=== PATIENT | female | born 2005 | race Caucasian/White ===

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

== ENCOUNTER 2024-02-11 15:33 | Outpatient (CLI) | payer OTHER, SELFPAY ==
[2024-02-11 20:10] LABS: Basophils % 0.3 % (0.1-2.0); Eosinophils % 0.4 % (0.1-12.0); Hematocrit 41.8 % (37.0-47.0); Hemoglobin 13.2 g/dL (12.2-16.2); Lymphocytes # 1.8 K/mm3 (0.7-4.5); Lymphocytes % 27.4 % (10-50); Mean Corpuscular HGB Conc 31.6 g/dL (31.8-35.4); Mean Corpuscular Hemoglobin 30.5 pg (27.0-31.2); Mean Corpuscular Volume 96.5 fl (81-99); Mean Platelet Volume 8.2 fl (7.4-10.4); Monocytes # 0.7 K/mm3 (0.1-1.0); Monocytes % 10.7 % (1.7-9.3); Neutrophils # 3.9 K/mm3 (1.8-7.8); Neutrophils % 61.1 % (37.0-80.0); Platelet Count 390 K/mm3 (142-424); Red Blood Count 4.33 M/mm3 (4.20-5.40); Red Cell Distribution Width 12.7 % (11.5-17.5); White Blood Count 6.4 K/mm3 (4.5-13.0)
[2024-02-11 20:28] LABS: Alanine Aminotransferase 15 U/L (12-78); Albumin Level 4.2 g/dl (3.5-5.0); Albumin/Globulin Ratio 1.4 (1.1-1.8); Alkaline Phosphatase 52 U/L (38-126); Anion Gap 10.5 mEq/L (5-15); Aspartate Amino Transferase 24 U/L (14-36); Bilirubin,Total 0.8 mg/dl (0.2-1.3); Blood Urea Nitrogen 10 mg/dl (7-17); Calcium 9.7 mg/dl (8.4-10.2); Carbon Dioxide 24 mmol/L (22.0-30.0); Chloride 106 mmol/L (98-107); Chol/HDL Ratio 2.8 (1-3.5); Cholesterol 128 mg/dl (140-200); Estimated Glomerular Filt Rate 157 ml/min (>60); GFR (African American) 190 ML/MIN (>60); Glucose 86 mg/dl (74-100); HDL Cholesterol 46 mg/dl (40-60); Potassium 4.5 mmoL/L (3.5-5.1); Sodium 136 mmol/L (136-145); Total Protein,Serum 7.2 g/dl (6.3-8.2); Triglycerides 64 mg/dl (30-150); VLDL Cholesterol 13 mg/dL (0-40)
[2024-02-11 20:41] LABS: 25-OH Vitamin D, Total 38.7 ng/mL (30-100)
[2024-02-11 20:47] LABS: Direct LDL Cholesterol 63.32 mg/dL (100-129)
[2024-02-11 20:56] LABS: Thyroid Stimulating Hormone 0.59 uIU/mL (0.465-4.68)
== END 2024-02-11 23:59 | disposition home or self-care (01) ==
LOC: LAB.DROPOF 02-12 14:58
PROVIDERS: PCP Family Medicine; Visit Provider Family Medicine
DX: H69.90 Unspecified Eustachian tube disorder, unspecified ear (principal); H93.90 Unspecified disorder of ear, unspecified ear; J30.2 Other seasonal allergic rhinitis; J34.89 Other specified disorders of nose and nasal sinuses
CPT/HCPCS: 80050; 80053; 80061; 82306; 84443; 85025

== ENCOUNTER 2024-04-24 17:24 | Emergency (ER) | payer OTHER, SELFPAY ==
[2024-04-24 17:35] VITALS: BP 98/65; PULSE 76; RESP 20; TEMP 37.1; O2SAT 96; BMI 21.8
--- NOTE | 2024-04-24 17:43 | ED_ITS ---
Discharge Plan Disposition Patient Disposition: Home, Self-Care Condition: Good Prescriptions Prescriptions: New prednisone 10 mg tablet 10 mg PO BID 3 Days Qty: 6 0RF azithromycin [Zithromax] 250 mg tablet 250 mg PO UD DOSE PK Qty: 6 0RF Rx Instructions: Take two (2) tablets today, then one (1) tablet days #2 thru #5 [id number]-[id number] [Bromfed DM] 2-30-10 mg/5 mL Syrup 5 ml PO Q6H PRN (Reason: Cough) Qty: 240 0RF ondansetron 4 mg Tablet,Disintegrating 4 mg PO Q8H PRN (Reason: Nausea) Qty: 12 0RF Referrals Follow up/Referrals: Beatrice Linares APRN [Primary Care Provider] - See instructions Activity Restrictions/Add. Instructions Additional Instructions/Restrictions: Drink plenty of fluids. Take tylenol or ibuprofen for pain or fever. Take the medications as directed. Follow up with your regular doctor. GO TO THE ER FOR ANY WORSENING SYMPTOMS Clinical Impressions Clinical Impression: Pharyngitis Instructions Patient Instructions: Sore Throat, DI for Pharyngitis/Tonsillopharyngitis -- Adult, Ondansetron, Azithromycin Print Language Print Language: Greek Discharge ED Provider: Richi Rubalcava [facility] [place] General Stated complaint: Sore throat,cough,congestion Time Seen by Provider: 04/24/24 17:43 Related Data Previous Rx's ?Medication ?Instructions ?Recorded azithromycin 250 mg tablet 250 mg PO UD DOSE PK #6 tabs 04/24/24 (Zithromax) vohvqtupupffkqo-mijtrsqtmlchkmj-JN 5 ml PO Q6H PRN Cough #240 mL 04/24/24 2 mg-30 mg-10 mg/5 mL oral syrup (Bromfed DM) ondansetron 4 mg disintegrating 4 mg PO Q8H PRN Nausea #12 tabs 04/24/24 tablet prednisone 10 mg tablet 10 mg PO BID 3 days #6 tabs 04/24/24 Allergies Allergy/AdvReac Type Severity Reaction Status Date / Time Penicillins [PENICILLINS] Allergy Unknown Rash Verified 04/24/24 17:45 Sulfa (Sulfonamide Allergy Unknown Rash Verified 04/24/24 17:45 Antibiotics) [SULFA (SULFONAMIDE ANTIBIOTICS)] [facility] Disclaimer: The information contained in this section may have been updated after the patient was seen, as this information can be updated by other users. Medical History (Updated 04/24/24 @ 18:07 by Richi Rubalcava APRN) Abnormal uterine bleeding Surgical History (Updated 02/25/24 @ 14:51 by REILLY Monroy) H/O removal of cyst Family History Other No significant family history Social History (Updated 02/25/24 @ 14:51 by REILLY Monroy) Smoking Status: Current every day smoker alcohol intake: never substance use type: denies use current occupational status: employed Travel in the last 8 weeks: None household members: family housing: house ROS Obtained: Yes All systems reviewed & no additional complaints except as documented Constitutional Constitutional: Reports chills and Reports fever(s) Eyes Eyes: Denies eye discharge ENT Ears, Nose, Mouth, and Throat: Reports as per HPI Cardiovascular Cardiovascular: Denies chest pain Respiratory Respiratory: Denies chest congestion and Reports cough Gastrointestinal Gastrointestingal: Reports nausea; Denies abdominal pain, constipation, cramping, diarrhea or vomiting Musculoskeletal Musculoskeletal: Denies arthralgias Integumentary/Breasts Skin/Breast: Denies rash Neurologic Neurologic: Denies paresthesias Physical Exam General General appearance: alert and in no apparent distress Head Head exam: atraumatic, normocephalic and normal inspection Eye Eye exam: Present normal appearance, PERRL and EOMI ENT ENT exam: Present mucous membranes moist and normal external ear exam Expanded ENT Exam TM/Canal exam: Bilateral TM: erythema and bulging Nose exam: Absent sinus tenderness Mouth exam: Present normal external inspection; Absent drooling Teeth exam: Present normal inspection Throat exam: Present tonsillar erythema, tonsillomegaly and tonsillar exudate Neck Neck exam: Present normal inspection, full ROM and trachea midline; Absent tenderness, meningismus or lymphadenopathy Chest Chest inspection: Present normal inspection and symmetric chest wall rise; Absent tenderness Respiratory Respiratory exam: Present normal lung sounds bilaterally; Absent respiratory distress, wheezes, stridor or accessory muscle use Cardiovascular Cardiovascular exam: Present regular rate and normal rhythm; Absent systolic murmur or diastolic murmur Abdominal Exam Abdominal exam: Present soft and normal bowel sounds; Absent distention, tenderness, guarding, rebound or rigidity Extremities Exam Extremities exam: Present normal inspection and normal capillary refill; Absent calf tenderness Back Exam Back exam: Present normal inspection and full ROM; Absent tenderness, CVA tenderness (R) or CVA tenderness (L) Neurological Exam Neurological exam: Present alert, oriented X3 and CN II-XII intact Psychiatric Psychiatric exam: Present normal affect and normal mood Skin Skin exam: Present warm, dry, intact and normal color Medical Decision Making Medical Records Medical records reviewed: No I reviewed the patient's medical records. Screening: Per USPSTF and CDC recommendations, given the prevalence of disease in our region, it is our hospital?s policy to screen for HIV and viral Hepatitis for all patients aged 18 and over and those with ongoing risk factors. Socrates Inquiry Pt receiving controlled substance: No Lab Data Lab results reviewed: Yes I reviewed the patient's lab results.
[2024-04-24 17:47] LABS: UTC Strep Screen (Rapid) Negative (Negative)
[2024-04-24 18:09] VITALS: BP 98/65; PULSE 76; RESP 20; TEMP 37.1; O2SAT 96
== END 2024-04-24 18:10 | disposition home or self-care (01) ==
PROVIDERS: Emergency Provider Nurse Practitioner Family; PCP Family Medicine
DX: J02.9 Acute pharyngitis, unspecified (principal)
CPT/HCPCS: 87880; 99213; G0381

== ENCOUNTER 2024-12-17 11:48 | Outpatient (CLI) | payer OTHER, SELFPAY ==
[2024-12-17 15:32] LABS: Coronavirus 19, PCR Not Detected (NotDetected); Human Rhinovirus Not Detected (NotDetected); Influenza A, PCR Not Detected (NotDetected); Influenza B, PCR Not Detected (NotDetected); Respiratory Syncytial Virus Not Detected (NotDetected)
--- OUTSIDE RECORDS SUMMARY | 2024-12-18 09:44 | XMS_ITS | Clinical Summary ---
Author Organization Healthcare Address [address] [place] [address] Care Team Providers Care Sales Market Leader Name Role Phone Tanja Hutton APRN Primary Care Provider [phone] Family History Medical History Relation Name Comments Alcohol abuse Father Conversions - Other Paternal Grandmother H. pylori infection Relation Name Status Comments Father Paternal Grandmother Social History Tobacco Use Types Packs/Day Years Used Date Smoking Tobacco: Never Comments Unknown Sex and Gender Information Value Date Recorded Sex Assigned at Not on file Legal Sex Female 6:59 PM EDT Gender Identity Not on file Sexual Orientation Not on file Last Filed Vital Signs Vital Sign Reading Time Taken Comments Blood Pressure 112/68 02/19/2019 12:43 PM EDT Pulse 165 02/19/2019 12:43 PM EDT Temperature 36.6 C (97.9 F) 08/01/2018 9:10 AM EST Respiratory Rate - - Oxygen Saturation - - Inhaled Oxygen Concentration - - Weight 60 kg (132 lb 4.4 oz) 02/19/2019 12:43 PM EDT Height 165 cm (5' 4.96 ) 02/19/2019 12:43 PM EDT Body Mass Index 22.04 02/19/2019 12:43 PM EDT Plan of Treatment Not on file Care Teams Sales Market Leader Relationship Specialty Start Date End Date Tanja Hutton APRN [address] [place] [id number] PCP - General 11/12/20
== END 2024-12-17 23:59 | disposition home or self-care (01) ==
LOC: LAB.DROPOF 12-18 09:43
PROVIDERS: PCP Student in an Organized Health Care Education/Training Program; Visit Provider Student in an Organized Health Care Education/Training Program
DX: J34.89 Other specified disorders of nose and nasal sinuses (principal)
CPT/HCPCS: 87631

== ENCOUNTER 2025-01-20 11:06 | Outpatient (CLI) | payer OTHER, SELFPAY ==
[2025-01-20 09:16] VITALS: BMI 22.4
--- OUTSIDE RECORDS SUMMARY | 2025-01-20 11:09 | XMS_ITS | Clinical Summary ---
Author Organization Healthcare Address [address] [place] [address] Care Team Providers Care Engraver Name Role Phone Tanja Hutton APRN Primary Care Provider [phone] Family History Medical History Relation Name Comments [...] of Treatment Not on file Care Teams Engraver Relationship Specialty Start Date End Date Tanja Hutton APRN [address] [place] [id number] PCP - General 11/12/20
[2025-01-20 12:11] LABS: Hematocrit 37.7 % (37.0-47.0); Hemoglobin 12.5 g/dL (12.2-16.2); Immature Granulocytes % 0.3 %; Mean Corpuscular HGB Conc 33.2 g/dL (31.8-35.4); Mean Corpuscular Hemoglobin 29.4 pg (27.0-31.2); Mean Corpuscular Volume 88.7 fl (81-99); Nucleated Red Blood Cells % 0 %; Platelet Count 361 K/mm3 (142-424); Red Blood Count 4.25 M/mm3 (4.20-5.40); Red Cell Distribution Width-SD 38.4 fL; White Blood Count 7.8 K/mm3 (4.8-10.8)
[2025-01-20 12:24] LABS: Chloride 100 mmol/L (98-107); Sodium 133 mmol/L (136-145)
[2025-01-20 12:25] LABS: Potassium 4.1 mmoL/L (3.5-5.1)
[2025-01-20 12:27] LABS: Anion Gap 11.1 mEq/L (5-15); Blood Urea Nitrogen 13 mg/dl (7-17); Carbon Dioxide 26 mmol/L (22.0-30.0); Creatinine Clearance Estimated 209 mL/min (50-200); Creatinine,Serum 0.40 mg/dl (0.52-1.04); Estimated Glomerular Filt Rate 201 ml/min (>60); GFR (African American) 244 ML/MIN (>60); HCG Qualitative, Serum Negative (Negative)
[2025-01-20 12:28] LABS: Calcium 9.6 mg/dl (8.4-10.2); Glucose 82 mg/dl (74-100)
== END 2025-01-20 23:59 | disposition home or self-care (01) ==
LOC: PREOP 11:07
PROVIDERS: Nurse Practitioner; PCP Family Medicine; Visit Provider Otolaryngology
DX: Z01.812 Encounter for preprocedural laboratory examination (principal)
CPT/HCPCS: 80048; 84703; 85025

== ENCOUNTER 2025-01-26 07:33 | Day surgery (SDC) | payer OTHER, SELFPAY ==
[2025-01-20 13:36] VITALS: BMI 22.4
[2025-01-26] VITALS (9 sets, daily range): BP systolic 90–123; BP diastolic 56–83; PULSE 61–104; RESP 16–18; TEMP 36.3–36.9; O2SAT 98–100
[2025-01-26] MEDS: LACTATED RINGERS 1000ML 1,000 ML 25 ML IV (08:08)
--- NOTE | 2025-01-26 08:27 | EXP.ANES.CKL ---
[facility] Disclaimer: The information contained in this section may have been updated after the patient was seen, as this information can be updated by other users. Medical History Recurrent streptococcal tonsillitis Enlarged tonsils Abnormal uterine bleeding Surgical History H/O removal of cyst Family History Other No significant family history Social History Smoking Status: Current every day smoker alcohol intake: never substance use type: denies use current occupational status: employed Travel in the last 8 weeks?: None household members: family housing: house [facility] Anesthesia Checklist Patient Identification Patient Identification: Verbal (Name & ) Structural Data Admitted From: Home Planned Operative Procedure/s: t/a Consent for Planned Operative Procedure(s) Verified: Yes NPO Status Verified Time NPO: 00:00 Additional verifications Anesthesia Reactions: No Hx Blood Transfusions: No Blood Transfusion Reaction: No Airway Assessment Mallampati Score:: Class II C-Spine Mobility Assessed: Yes TMJ Mobility Assessed: Yes Dentition: Good Dentition Neurological Assessment Level of Consciousness: Awake, Alert and Appropriate Anesthesia Plan Anesthesia Risk discussed: Yes Anesthesia Plan: Verified ASA Class: I Anesthesia Type: General
[2025-01-26] MEDS: BUPIVACAINE 0.5% W/EPI 1:200,000 30ML VIAL 30 ML IJ (09:45)
[2025-01-26] MEDS: WHITE PETROLATUM 5GM UDP 5 GM TP (09:45)
--- NOTE | 2025-01-26 10:08 | EXP.OP.NOTE ---
Date of procedure: 01/26/25 Pre-op Diagnosis:: Chronic tonsillitis Post-op Diagnosis:: Same Procedure performed:: Tonsillectomy Surgeon:: Porfirio Nunn III, MD Prize Fighter(s):: None EXTERMINATION INSPECTOR:: Shae Sylvester Anesthesia: GETA Estimated blood loss (mL): 20 Operative findings:: Chronically inflamed tonsils Operative note:: The patient was brought to the operating room placed under general endotracheal anesthesia with IV sedation. They were then placed in the Afsaneh position and a McIvor mouthgag was used to better expose the oral cavity and oropharynx. The soft palate was palpated and noted to be intact through all planes. The adenoid pad was inspected and noted to be nonobstructing. The right tonsil was then dissected from its underlying fascial and muscular attachments using electrocautery dissection. Any bleeding spots were spot coagulated. A similar procedure was performed on the left side with similar results. The wound was then irrigated with sterile water solution. After observation and no evidence any further bleeding, I injected half percent Marcaine with epinephrine into the tonsillar fossae approximately 3 ccs were used. The patient stomach contents were aspirated clear. She was awakened in the operating room taken recovery room in good condition. Condition: stable Disposition: PACU Complications:: None
--- NOTE | 2025-01-26 10:14 | EXP.ANES.I ---
[facility] Anesthesia Record Part I Anesthesia Record I Intake, IV Amount: 600 Hydration: Adequate Estimated blood loss (mL): 0 Urine output (mL): 0 Blood Products used (#): none Blood Pressure: 123/83 SaO2: 98 Pulse Rate: 66 Airway Patency: Patent Respiratory Rate: 18 Temperature: 98 F Patient is:: Awake, Nasal O2 and Stable Stable to PACU at:: 10:18
== END 2025-01-26 11:09 | disposition home or self-care (01) ==
PROVIDERS: PCP Family Medicine; Visit Provider Otolaryngology
PROC: (CPT 42826; principal; 2025-01-26 08:30)
DX: J35.01 Chronic tonsillitis (principal); J30.2 Other seasonal allergic rhinitis; Z88.0 Allergy status to penicillin; Z88.2 Allergy status to sulfonamides; Z86.19 Personal history of other infectious and parasitic diseases; Z97.5 Presence of (intrauterine) contraceptive device
CPT/HCPCS: 42826; J1100; J1200; J2003; J2250; J2405; J2704; J3010; J7120

== ENCOUNTER 2025-02-06 16:50 | Emergency (ER) | payer OTHER, SELFPAY ==
[2025-02-06 17:12] VITALS: BP 110/79; PULSE 90; RESP 16; TEMP 37; O2SAT 99; BMI 21.6
--- OUTSIDE RECORDS SUMMARY | 2025-02-06 17:27 | XMS_ITS | Clinical Summary ---
Author Organization Healthcare Address [address] [place] [address] Care Team Providers Care Outcomes Analyst Name Role Phone Tanja Hutton APRN Primary Care Provider [phone] Family History Medical History Relation Name Comments [...] of Treatment Not on file Care Teams Outcomes Analyst Relationship Specialty Start Date End Date Tanja Hutton APRN [address] [place] [id number] PCP - General 11/12/20
[2025-02-06 18:20] VITALS: BP 129/77; PULSE 84; RESP 18; TEMP 36.9; O2SAT 98
[2025-02-06 19:00] VITALS: BP 124/71; PULSE 90; O2SAT 99
--- NOTE | 2025-02-06 19:02 | ED_ITS ---
<Statement entered by Chani Guerrero DO - 02/07/25 01:57> I was consulted by the MARIAELENA, and we discussed the complexity of problems being addressed. I approve the treatment and management plan for this patient's care in the emergency department, thus performing a substantial portion of the medical decision making. Chani Guerrero DO Discharge Plan Disposition Patient Disposition: Xfer Short-Term Hosp Prescriptions Prescriptions: No Action Renate 14 mcg/24 hr (3 yrs) 13.5 mg intrauterine device 14 mcg intrauterine DIRECTED Referrals Follow up/Referrals: Beatrice Linares APRN [Primary Care Provider, Family Practice] - See instructions Activity Restrictions/Add. Instructions Additional Instructions/Restrictions: Patient accepted by Dr. Dunn to the [facility] ED. Clinical Impressions Clinical Impression: Post-tonsillectomy hemorrhage Print Language Print Language: Malawian Discharge ED Provider: Chani Guerrero General Adult HPI <TESS Carrion - Last Filed: 02/06/25 20:35> General Chief complaint: Sore Throat Stated complaint: bleeding at tonsillectomy 01/26/25 Time Seen by Provider: 02/06/25 17:31 Mode of Arrival: Ambulatory Source of Information: Patient Description of Symptoms (Recalled from ER Triage Doc. by RN): pt to the ED with bleeding from her throat post tonsilectomy on 01/26. pt saw the ENT yesterday who stated she was healing well but the pt is concerned about the bleeding. pt stated her pain has been well controlled and rates her pain a 2 at this time History of Present Illness HPI narrative: Patient presents with 5 days of post tonsillectomy bleeding. Surgery date was 01/26/25. She reports that she has had a fever, Tmax of 101 as well. She had follow-up in the office yesterday with the nurse practitioner. She reports that last night she started to develop some quarter size clots and felt she was choking at times. MD complaint: post tonsillectomy bleed Onset (ago): day(s) (5) Location: mouth Severity: moderate Consistency: intermittent Relieving factors: none Exacerbating factors: none Associated symptoms: negative nausea/vomiting Related Data Home Medications ?Medication ?Instructions ?Recorded ?Confirmed levonorgestrel 14 mcg/24 hr (up to 14 mcg intrauterine DIRECTED 01/08/25 02/05/25 3 yrs) 13.5 mg intrauterine device (Renate) Allergies Allergy/AdvReac Type Severity Reaction Status Date / Time Penicillins (PENICILLINS) Allergy Unknown Rash Verified 02/05/25 09:44 Sulfa (Sulfonamide Allergy Unknown Rash Verified 02/05/25 09:44 Antibiotics) (SULFA (SULFONAMIDE ANTIBIOTICS)) PFSH <TESS Carrion - Last Filed: 02/06/25 20:35> [facility] Disclaimer: The information contained in this section may have been updated after the patient was seen, as this information can be updated by other users. Medical History (Updated 02/06/25 @ 20:30 by TESS Carrion) Recurrent streptococcal tonsillitis Enlarged tonsils Abnormal uterine bleeding Surgical History (Updated 02/05/25 @ 10:02 by aJyla Ramos APRN) Status post tonsillectomy History of tonsillectomy H/O removal of cyst Family History Other No significant family history Social History Smoking Status: Never smoker alcohol intake: never substance use type: denies use current occupational status: employed Travel in the last 8 weeks?: None household members: family housing: house Have you lived/traveled outside [place] in past 30 days?: No Contact w/someone who lives/traveled outside US past 30 days?: No Exposure to someone with infectious disease in past 14 days?: No Do you have a fever (greater than 100.4 F or 38 C)?: No Have you tested positive for COVID-19?: No Exposed to someone with COVID-19 in past 14 days?: No Do you have a sore throat?: No Do you have a cough?: No Do you have any weakness?: No Do you have any diarrhea?: No Are you experiencing any unusual bleeding?: No Do you have any muscle aches/pain?: No Do you have any abdominal pain?: No Are you experiencing loss of taste or smell?: No Other Medical History Have you received the Flu Vaccine for this season: Yes Have you received the Pneumonia Vaccine: No <TESS Carrion - Last Filed: 02/06/25 20:35> ROS Obtained: Yes Systems reviewed as appropriate & no additional complaints except as documented Physical Exam <TESS Carrion - Last Filed: 02/06/25 20:35> General General appearance: alert and in no apparent distress Head Head exam: atraumatic and normocephalic Eye Eye exam: Present normal appearance and EOMI ENT ENT exam: Present mucous membranes moist and other (Membranous material around left peritonsillar region is bloody and loose, upon second exa this is no longer present and patient has some mild active bleeding noted ) Chest Chest inspection: Present symmetric chest wall rise Respiratory Respiratory exam: Present normal lung sounds bilaterally; Absent wheezes or stridor Cardiovascular Cardiovascular exam: Present regular rate and normal rhythm; Absent systolic murmur Extremities Exam Extremities exam: Present full ROM Neurological Exam Neurological exam: Present alert and oriented X3 Psychiatric Psychiatric exam: Present normal affect and normal mood Skin Skin exam: Present warm, dry and intact Medical Decision Making <TESS Carrion - Last Filed: 02/06/25 20:35> Medical Records Screening: Per USPSTF and CDC recommendations, given the prevalence of disease in our region, it is our hospital?s policy to screen for HIV and viral Hepatitis for all patients aged 18 and over and those with ongoing risk factors. Socrates Inquiry Pt receiving controlled substance: No Vital Signs: 02/06/25 17:12 02/06/25 18:20 02/06/25 19:00 Temperature 98.6 F 98.4 F Temperature Source Oral Oral Pulse Rate 84 90 Pulse Rate [Left Radial] 90 Respiratory Rate 16 18 Blood Pressure 129/77 124/71 Blood Pressure [Right Arm] 110/79 Blood Pressure Mean [Right Arm] 89 Blood Pressure Source Automatic Cuff Blood Pressure Source [Right Arm] Automatic Cuff Blood Pressure Position Sitting Blood Pressure Position [Right Arm] Sitting 02 Sat by Pulse Oximetry 99 98 99 Oxygen Delivery Method Room Air Room Air 02/06/25 19:30 02/06/25 20:00 02/06/25 20:53 Temperature 97.9 F Temperature Source Oral Pulse Rate 79 116 H 86 Pulse Rate [Left Radial] Respiratory Rate 16 Blood Pressure 104/80 L 122/87 121/70 Blood Pressure [Right Arm] Blood Pressure Mean [Right Arm] Blood Pressure Source Automatic Cuff Blood Pressure Source [Right Arm] Blood Pressure Position Sitting Blood Pressure Position [Right Arm] 02 Sat by Pulse Oximetry 98 100 Oxygen Delivery Method Room Air Lab Data Lab Results 02/06/25 19:25: WBC 12.7 H, RBC 4.34, Hgb 12.3, Hct 38.4, MCV 88.5, MCH 28.3, MCHC 32.0, RDW 11.9, Plt Count 367, MPV 9.0, Neut % (Auto) 78.1, Lymph % (Auto) 11.0, [place] % (Auto) 9.8 H, Eos % (Auto) 0.2, Baso % (Auto) 0.3, Neut # (Auto) 9.9 H, Lymph # (Auto) 1.4, [place] # (Auto) 1.3 H, Eos # (Auto) 0.0, Baso # (Auto) 0.0 02/06/25 19:25 Orders (Tests/Meds): ED MEDICATIONS Discontinued Medications Generic Name Dose Route Start Last Admin Trade Name Freq PRN Reason Stop Dose Admin Dexamethasone Sodium Phosphate 10 mg 02/06/25 18:53 02/06/25 20:06 Dexamethasone 4mg/Ml 5ml Mdv IV 02/06/25 18:54 10 mg ONCE ONE Administration Sodium Chloride 1,000 mls @ 999 mls/hr 02/06/25 18:53 02/06/25 20:07 Sod Chlor 0.9% 1000ml Bag IV 02/06/25 19:53 999 mls/hr .Q1H1M ONE Administration Non-Formulary Medication 500 neb 02/06/25 19:01 02/06/25 20:07 Nebulized Txa IH 02/06/25 19:02 Not Given ONCE ONE Tranexamic Acid 500 mg 02/06/25 19:00 02/06/25 19:11 Tranexamic Acid 1,000 Mg/10 Ml Vial TP 02/06/25 19:01 500 mg ONCE ONE Administration ORDERS Category Date Time Status CBC w/Auto Diff [Complete Blood Count Auto Diff] Stat Lab 02/06/25 19:25 Completed HIV Combo Routine Lab 02/06/25 19:25 Received Hepatitis C Ab Qual. W/ RFX Routine Lab 02/06/25 19:25 Received Medical Decision Narrative: In summary patient is a 19-year-old who presents the emergency department for evaluation of post tonsillectomy bleeding. Patient is mildly tachycardic upon arrival, afebrile. Additionally no active bleeding on exam, Christie is spitting up some bloody saliva. Differential diagnosis includes post tonsillectomy bleeding, normal postop pain. Initial workup will be conducted with CBC. Initial inventions include IV fluid bolus, Decadron, TXA neb. Initial workup reviewed by me unremarkable. Upon repeat evaluation patient has developed some active bleeding and has increased bloody sputum production despite TXA neb. Given this patient advised to go to the [facility] emergency room for evaluation by Dr. Dunn. I spoke to the transfer center and they state that Dr. Dunn will be the accepting physician to the ER. Patient advised that she is to let the ER know that she is not to be evaluated by the ER physician, Dr. Dunn will be notified upon her arrival. Bleeding is stable at this time and she is able to go POV. <Chani Guerrero, DO - Last Filed: 02/07/25 01:57> Vital Signs: 02/06/25 17:12 02/06/25 18:20 02/06/25 19:00 Temperature 98.6 F 98.4 F Temperature Source Oral Oral Pulse Rate 84 90 Pulse Rate [Left Radial] 90 Respiratory Rate 16 18 Blood Pressure 129/77 124/71 Blood Pressure [Right Arm] 110/79 Blood Pressure Mean [Right Arm] 89 Blood Pressure Source Automatic Cuff Blood Pressure Source [Right Arm] Automatic Cuff Blood Pressure Position Sitting Blood Pressure Position [Right Arm] Sitting 02 Sat by Pulse Oximetry 99 98 99 Oxygen Delivery Method Room Air Room Air 02/06/25 19:30 02/06/25 20:00 02/06/25 20:53 Temperature 97.9 F Temperature Source Oral Pulse Rate 79 116 H 86 Pulse Rate [Left Radial] Respiratory Rate 16 Blood Pressure 104/80 L 122/87 121/70 Blood Pressure [Right Arm] Blood Pressure Mean [Right Arm] Blood Pressure Source Automatic Cuff Blood Pressure Source [Right Arm] Blood Pressure Position Sitting Blood Pressure Position [Right Arm] 02 Sat by Pulse Oximetry 98 100 Oxygen Delivery Method Room Air Lab Data Lab results reviewed: Yes I reviewed the patient's lab results. Lab Results 02/06/25 19:25: WBC 12.7 H, RBC 4.34, Hgb 12.3, Hct 38.4, MCV 88.5, MCH 28.3, MCHC 32.0, RDW 11.9, Plt Count 367, MPV 9.0, Neut % (Auto) 78.1, Lymph % (Auto) 11.0, [place] % (Auto) 9.8 H, Eos % (Auto) 0.2, Baso % (Auto) 0.3, Neut # (Auto) 9.9 H, Lymph # (Auto) 1.4, [place] # (Auto) 1.3 H, Eos # (Auto) 0.0, Baso # (Auto) 0.0 Orders (Tests/Meds): ED MEDICATIONS Discontinued Medications Generic Name Dose Route Start Last Admin Trade Name Cash PRN Reason Stop Dose Admin Dexamethasone Sodium Phosphate 10 mg 02/06/25 18:53 02/06/25 20:06 Dexamethasone 4mg/Ml 5ml Mdv IV 02/06/25 18:54 10 mg ONCE ONE Administration Sodium Chloride 1,000 mls @ 999 mls/hr 02/06/25 18:53 02/06/25 20:07 Sod Chlor 0.9% 1000ml Bag IV 02/06/25 19:53 999 mls/hr .Q1H1M ONE Administration Non-Formulary Medication 500 neb 02/06/25 19:01 02/06/25 20:07 Nebulized Txa IH 02/06/25 19:02 Not Given ONCE ONE Tranexamic Acid 500 mg 02/06/25 19:00 02/06/25 19:11 Tranexamic Acid 1,000 Mg/10 Ml Vial TP 02/06/25 19:01 500 mg ONCE ONE Administration ORDERS Category Date Time Status CBC w/Auto Diff [Complete Blood Count Auto Diff] Stat Lab 02/06/25 19:25 Completed HIV Combo Routine Lab 02/06/25 19:25 Received Hepatitis C Ab Qual. W/ RFX Routine Lab 02/06/25 19:25 Received Medical Decision Narrative: In summary patient is a 19-year-old who presents the emergency department for evaluation of post tonsillectomy bleeding. Patient is mildly tachycardic upon arrival, afebrile. Additionally no active bleeding on exam, Christie is spitting up some bloody saliva. Differential diagnosis includes post tonsillectomy bleeding, normal postop pain, symptomatic anemia, normal postoperative bleeding, venous hemorrhage, amongst others. Initial workup will be conducted with CBC. Initial inventions include IV fluid bolus, Decadron, TXA neb. Initial workup reviewed by me unremarkable. Upon repeat evaluation patient has developed some active bleeding and has increased bloody sputum production despite TXA neb. Given this patient advised to go to the [facility] emergency room for evaluation by Dr. Dunn. I spoke to the transfer center and they state that Dr. Dunn will be the accepting physician to the ER. Patient advised that she is to let the ER know that she is not to be evaluated by the ER physician, Dr. Dunn will be notified upon her arrival. Bleeding is stable at this time and she is able to go POV. Critical Care <TESS Carrion - Last Filed: 02/06/25 20:35> Critical Care Time Critical Care Time: No
[2025-02-06] MEDS: TRANEXAMIC ACID 1,000 MG/10 ML VIAL 500 MG TP (19:11)
[2025-02-06 19:30] VITALS: BP 104/80; PULSE 79; O2SAT 98
[2025-02-06 19:32] LABS: Hematocrit 38.4 % (37.0-47.0); Hemoglobin 12.3 g/dL (12.2-16.2); Immature Granulocytes % 0.6 %; Mean Corpuscular HGB Conc 32.0 g/dL (31.8-35.4); Mean Corpuscular Hemoglobin 28.3 pg (27.0-31.2); Mean Corpuscular Volume 88.5 fl (81-99); Nucleated Red Blood Cells % 0 %; Platelet Count 367 K/mm3 (142-424); Red Blood Count 4.34 M/mm3 (4.20-5.40); Red Cell Distribution Width-SD 38.5 fL; White Blood Count 12.7 K/mm3 (4.8-10.8)
[2025-02-06 20:00] VITALS: BP 122/87; PULSE 116; O2SAT 100
[2025-02-06] MEDS: DEXAMETHASONE 4MG/ML 5ML MDV 10 MG IV (20:06)
[2025-02-06] MEDS: 0.9 % SODIUM CHLORIDE 1000ML 1,000 ML 999 ML IV (20:07)
[2025-02-06 20:53] VITALS: BP 121/70; PULSE 86; RESP 16; TEMP 36.6; O2SAT 98
--- NOTE | 2025-02-06 20:53 | PC.NURSE ---
Report called to [facility] to Kathryn in the ER
[2025-02-07 08:12] LABS: Hepatitis C Ab Qual. W/ RFX NEGATIVE (Negative)
== END 2025-02-06 20:59 | disposition short-term general hospital (02) ==
PROVIDERS: Physician Assistant; Emergency Provider Student in an Organized Health Care Education/Training Program; PCP Family Medicine
DX: J95.830 Postprocedural hemorrhage of a respiratory system organ or structure following a respiratory system procedure (principal)
CPT/HCPCS: 85025; 86803; 87389; 96361; 96374; 99285; J1100; J7030